=== PATIENT | male | born 1990 | race Two or more races ===

== ENCOUNTER 2020-04-24 03:23 | Emergency (ER) | payer MEDICAID ==
[~2020-04-24] VITALS: Ht 180.3 cm; Wt 104.3 kg
[2020-04-24] MEDS ORDERED: HYDROCODONE/APAP 10-325 MG TABLET PO ONE (04:15)
[2020-04-24] MEDS ORDERED: HYDROCODONE/APAP 10-325 MG TABLET ONE (04:19)
--- NOTE | 2020-04-24 05:43 | NUR ---
Patient discharged to home in stable condition. Written and verbal after care instructions given. Patient verbalizes understanding of instructions. Stressed follow up or return to ER for worsening s/s. Patient instructed not to drive while taking medications. Patient verbalized understanding.
== END 2020-04-24 05:52 | disposition home or self-care (01) ==
LOC: ER 03:25
DX: S82.52XA Displaced fracture of medial malleolus of left tibia, initial encounter for closed fracture (principal); S92.315A Nondisplaced fracture of first metatarsal bone, left foot, initial encounter for closed fracture; V03.90XA Pedestrian on foot injured in collision with car, pick-up truck or van, unspecified whether traffic or nontraffic accident, initial encounter; Y92.89 Other specified places as the place of occurrence of the external cause
CPT/HCPCS: 73630; A4663